=== PATIENT | male | born 1945 | race American Indian/Alaskan Native ===

== ENCOUNTER 2017-10-20 19:36 | Emergency (ER) | payer MEDICARE, OTHER ==
[2017-10-20] MEDS ORDERED: Albuterol/Ipratropium 3.0-0.5 MG/3 ML Neb Soln NEB ONE (20:01)
[2017-10-20] MEDS ORDERED: methylPREDNISolone Sodium Succinate 125 MG/2 ML SDV IM ONE (20:01)
--- NOTE | 2017-10-20 20:06 | EDM.PDOC ---
ED HPI GENERAL MEDICAL PROBLEM - General Chief Complaint: Respiratory Problem Stated Complaint: TROUBLE BREATHING Time Seen by Provider: 10/20/17 20:01 Source of Information: Reports: Patient History Limitations: Reports: No Limitations - History of Present Illness INITIAL COMMENTS - FREE TEXT/NARRATIVE: c/o asthma exac since this am and neb not working. usually needs shot. - Related Data Allergies Allergy/AdvReac Type Severity Reaction Status Date / Time Penicillins Allergy Hives Verified 10/20/17 19:48 Home Meds: Home Meds Albuterol [Proair HFA] 11/14/13 [History] Furosemide [Furosemide] 11/14/13 [History] Lisinopril [Lisinopril] 11/14/13 [History] Terbinafine [LamISIL] 11/14/13 [History] Terbinafine [LamISIL] 11/14/13 [History] glyBURIDE [Glyburide] 11/14/13 [History] Past Medical History Respiratory History: Reports: Asthma Endocrine/Metabolic History: Reports: Diabetes, Type II Social & Family History - Tobacco Use Smoking Status *Q: Never Smoker Years of Tobacco use: 25 Second Hand Smoke Exposure: No - Recreational Drug Use Recreational Drug Use: No ED ROS GENERAL - Review of Systems Review Of Systems: ROS reveals no pertinent complaints other than HPI. ED EXAM, GENERAL - Physical Exam Exam: See Below Exam Limited By: No Limitations General Appearance: Alert, WD/WN, Mild Distress, Other (wheeze) Ears: Hearing Grossly Normal Throat/Mouth: Normal Voice, No Airway Compromise Head: Atraumatic Neck: Non-Tender, Full Range of Motion Respiratory/Chest: No Respiratory Distress, No Accessory Muscle Use, Decreased Breath Sounds, Rhonchi, Wheezing. No: Retractions, Splinting Cardiovascular: Regular Rate, Rhythm GI/Abdominal: Soft, Non-Tender Neurological: Alert, Oriented, Normal Cognition, Normal Gait, No Motor/Sensory Deficits Psychiatric: Flat Affect Skin Exam: Warm, Dry, Normal Color Lymphatic: No Adenopathy Course - Vital Signs Last Recorded V/S: Last Vital Signs Temp 36.3 C 10/20/17 19:40 Pulse 66 10/20/17 19:40 Resp 18 10/20/17 19:40 BP 148/66 H 10/20/17 19:40 Pulse Ox 100 10/20/17 19:40 - Orders/Labs/Meds Orders: Active Orders 24 hr Category Date Time Status RT Aerosol Therapy [RC] ASDIRECTED Care 10/20/17 20:01 Active Meds: Medications Discontinued Medications Generic Name Dose Route Start Last Admin Trade Name Rasta PRN Reason Stop Dose Admin Albuterol/Ipratropium 3 ml 10/20/17 20:01 10/20/17 20:10 Duoneb 3.0-0.5 Mg/3 Ml NEB 10/20/17 20:02 3 ml ONETIME ONE Administration Methylprednisolone Sodium Succinate 125 mg 10/20/17 20:01 10/20/17 20:08 Solu-Medrol IM 10/20/17 20:02 125 mg ONETIME ONE Administration - Re-Assessments/Exams Free Text/Narrative Re-Assessment/Exam: 10/20/17 20:33 re-exam; s/p duo+IM solumed = much better 90% cleared Departure - Departure Time of Disposition: 20:33 Disposition: Home, Self-Care 01 Condition: Good Clinical Impression: Exacerbation of asthma Qualifiers: Asthma severity: moderate Asthma persistence: persistent Qualified Code(s): J45.41 - Moderate persistent asthma with (acute) exacerbation - Discharge Information Instructions: Asthma, Adult Forms: ED Department Discharge Additional Instructions: 1) rest 2) continue home meds 3) recheck if there is any change or concern rx given; medrol dospak duoneb only use every 12 hours when albuterol not working x 1 box - My Orders Last 24 Hours: My Active Orders 10/20/17 20:01 RT Aerosol Therapy [RC] ASDIRECTED - Assessment/Plan Last 24 Hours: My Active Orders 10/20/17 20:01 RT Aerosol Therapy [RC] ASDIRECTED
== END 2017-10-20 20:40 | disposition home or self-care (01) ==
LOC: DL.ED 19:36
DX: J45.41 Moderate persistent asthma with (acute) exacerbation (principal); E11.9 Type 2 diabetes mellitus without complications; Z79.84 Long term (current) use of oral hypoglycemic drugs; Z79.899 Other long term (current) drug therapy; Z88.0 Allergy status to penicillin
CPT/HCPCS: 96372; 99284; J2930

== ENCOUNTER 2019-11-24 08:17 | Day surgery (SDC) | payer MEDICARE, OTHER ==
[~2019-11-24 08:17] MED LIST: Tropicamide 1% Ophth Soln 15 ML Bottle EYELF ONE
[2019-11-24] MEDS ORDERED: Dexamethasone 4 MG/ML SDV IV ONE (08:18)
[2019-11-24] MEDS ORDERED: Midazolam 1 MG/ML 2 ML SDV IV ONE (08:18)
[2019-11-24] MEDS ORDERED: Sodium Chloride 0.9% 10 ML Syringe FLUSH PRN (08:30)
[2019-11-24] MEDS ORDERED: Phenylephrine 10% Ophth Soln 5 ML Bot EYELF PRN (08:30)
[2019-11-24] MEDS ORDERED: Povidone-Iodine 5% Sterile Ophth Soln 30 ML Bottle EYELF ONE ×2 (08:30→09:37)
[2019-11-24] MEDS ORDERED: Acetaminophen 325 MG Tab PO PRN (08:30)
[2019-11-24] MEDS ORDERED: Phenylephrine 10% Ophth Soln 5 ML Bot EYELF ONE ×2 (08:30→09:38)
[2019-11-24] MEDS ORDERED: Cataract Ophth Solution EYELF ONE (08:30)
[2019-11-24] MEDS ORDERED: Moxifloxacin 0.5% Ophth Soln 3 ML Bottle EYELF ONE (08:30)
[2019-11-24] MEDS ORDERED: Timolol Maleate 0.5% Ophth Soln 5 ML Bottle EYELF ONE (08:30)
[2019-11-24] MEDS ORDERED: Ondansetron 4 MG/2 ML SDV IVPUSH PRN (08:30)
[2019-11-24] MEDS ORDERED: Proparacaine 0.5% Ophth Soln 15 ML Bottle EYELF ONE (08:30)
[2019-11-24] MEDS ORDERED: Apraclonidine 0.5% Ophth Soln 5 ML Bot EYELF ONE (09:37)
[2019-11-24] MEDS ORDERED: Tetracaine HCl/PF 0.5% 4 ML Bottle EYELF ONE (09:37)
[2019-11-24] MEDS ORDERED: Diclofenac Sodium 0.1% Ophth Soln 5 ML Bottle EYELF ONE (09:37)
[2019-11-24] MEDS ORDERED: Lidocaine 1% 30 ML SDV ONE (09:37)
[2019-11-24] MEDS ORDERED: Vancomycin 500 MG SDV EYELF ONE (09:38)
[2019-11-24] MEDS ORDERED: Balanced Salt Solution Ophth Irrig 500 ML Bottle IOCULAR ONE (09:38)
[2019-11-24] MEDS ORDERED: Chondroitin Sulfate/Hyaluronate Sodium Ophth Inj 0.75 ML Syringe EYELF ONE (09:38)
[2019-11-24] MEDS ORDERED: Dexamethasone 4 MG/ML SDV IOCULAR ONE (09:43)
[2019-11-24] MEDS ORDERED: Acetylcholine 20 MG/2 ML Intraocular Inj Kit EYELF ONE (09:45)
[2019-11-24] MEDS ORDERED: Chondroitin Sulfate/Hyaluronate Sodium Ophth Inj 0.5 ML Syringe IOCULAR ONE (09:45)
--- NOTE | 2019-11-25 08:27 | OR ---
DATE: 11/24/2019 PREOPERATIVE DIAGNOSES: 1. Visually significant mixed cataract, left eye. 2. Primary open angle glaucoma, left eye. POSTOPERATIVE DIAGNOSES: 1. Visually significant mixed cataract, left eye. 2. Primary open angle glaucoma, left eye. PROCEDURES: 1. Extracapsular cataract extraction with intraocular lens implant. 2. Placement of iStent for glaucoma control. SURGEON: Nicholas Rose MD. ANESTHESIA: Local MAC. INDICATION: Mr. Parkinson was seen in the clinic with complaints of blurred vision. The examination revealed visually significant cataract and mild primary open angle glaucoma. I explained the options; offered cataract surgery; and I explained risks including, but not limited to, infection, retinal detachment, loss of vision, need for additional surgery, hemorrhage, and risks associated with anesthesia including loss of life. We discussed implant options. He has requested a monofocal implant targeting mild myopia. I recommended surgery with the iStent. OPERATIVE DESCRIPTION: The patient was prepped and draped in a sterile fashion and topical anesthesia was applied. Attention was placed on the operative eye. A sterile lid speculum was placed to allow operative exposure. Paracentesis was made temporal. Intracameral lidocaine was administered. Viscoelastic was injected. A full-thickness corneal incision was made using the trapezoidal blade. Bent needle cystotome was then used to make a small farideh in the anterior capsule and a 360-degree curvilinear capsulorrhexis was created. Nucleus was then hydrodissected and hydrodelinated using balanced saline solution. Nucleus was then decompressed centrally and rotated and noted to be free of adhesions. Nucleus was then removed using the phacoemulsification handpiece. Additional viscoelastic was then injected into the capsular bag and the intraocular lens was inserted into the capsular bag. The iStent portion of the procedure was then performed. Following removal of the nucleus and cortex, the irrigation and aspiration handpiece was inserted to remove viscoelastic from the posterior surface of the IOL. Additional viscoelastic was then inserted into the anterior chamber angle directly opposite the corneal incision. Miochol was injected into the nasal iris to promote pupillary contraction. The patient's head was then rotated 35 degrees away from the initial position. The operating microscope was also rotated 35 degrees to achieve the proper orientation. The gonioprism was then placed onto the eye. The iStent was then inserted into the anterior chamber with the right hand and the stent was introduced into the pigmented trabecular meshwork. The stent was advanced beneath the trabecular meshwork until approximately two-thirds of the body was covered and then the stent was released from the insertion device. The stent was then tapped into its final resting position using the insertion device. The device was then reinspected to ensure that it was securely in position. The viscoelastic was aspirated from the anterior chamber. Wound and paracentesis sites were hydrated using balanced saline solution. Vancomycin 0.1 mL was injected into the anterior chamber. Intraocular lens was inspected and noted to be clear and well centered. Postoperative drops were placed and a sterile eye patch and shield were placed over the operative eye. The patient was then transported to the postoperative recovery area having tolerated the procedure well. No complications occurred. [facility] /[id number]
== END 2019-11-24 11:00 | disposition home or self-care (01) ==
LOC: DL.SDS 08:17
PROVIDERS: ATTEND Ophthalmology
DX: E11.36 Type 2 diabetes mellitus with diabetic cataract (principal); H40.1120 Primary open-angle glaucoma, left eye, stage unspecified; H25.813 Combined forms of age-related cataract, bilateral; I10 Essential (primary) hypertension; E78.5 Hyperlipidemia, unspecified; E11.42 Type 2 diabetes mellitus with diabetic polyneuropathy; J44.9 Chronic obstructive pulmonary disease, unspecified; N40.1 Benign prostatic hyperplasia with lower urinary tract symptoms; N13.8 Other obstructive and reflux uropathy; G47.33 Obstructive sleep apnea (adult) (pediatric); E66.9 Obesity, unspecified; Z68.31 Body mass index [BMI] 31.0-31.9, adult; Z79.899 Other long term (current) drug therapy; Z79.84 Long term (current) use of oral hypoglycemic drugs; Z79.51 Long term (current) use of inhaled steroids; Z87.891 Personal history of nicotine dependence
CPT/HCPCS: 00142; 0191T; 66984; A9270; C1780; C1783; J1100; J2001; J2250; J3370

== ENCOUNTER 2020-02-23 08:03 | Day surgery (SDC) | payer MEDICARE, OTHER ==
[~2020-02-23 08:03] MED LIST changes: +Acetaminophen 325 MG Tab PO PRN; +Cataract Ophth Solution EYERT ONE; +Moxifloxacin 0.5% Ophth Soln 3 ML Bottle EYERT ONE; +Ondansetron 4 MG/2 ML SDV IVPUSH PRN; +Phenylephrine 10% Ophth Soln 5 ML Bot EYERT ONE; +Povidone-Iodine 5% Sterile Ophth Soln 30 ML Bottle EYERT ONE; +Proparacaine 0.5% Ophth Soln 15 ML Bottle EYERT ONE; +Sodium Chloride 0.9% 10 ML Syringe FLUSH PRN; +Timolol Maleate 0.5% Ophth Soln 5 ML Bottle EYERT ONE; -Tropicamide 1% Ophth Soln 15 ML Bottle EYELF ONE
[2020-02-23] MEDS ORDERED: Dexamethasone 4 MG/ML SDV IV ONE (08:04)
[2020-02-23] MEDS ORDERED: Sodium Chloride 0.9% 10 ML Syringe IV ONE (08:04)
[2020-02-23] MEDS ORDERED: Midazolam 1 MG/ML 2 ML SDV IV ONE (08:04)
[2020-02-23] MEDS ORDERED: Phenylephrine 10% Ophth Soln 5 ML Bot EYERT PRN (08:56)
[2020-02-23] MEDS ORDERED: Lidocaine 1% 30 ML SDV ONE (09:07)
[2020-02-23] MEDS ORDERED: Apraclonidine 0.5% Ophth Soln 5 ML Bot EYERT ONE (09:07)
[2020-02-23] MEDS ORDERED: Tetracaine HCl/PF 0.5% 4 ML Bottle EYERT ONE (09:07)
[2020-02-23] MEDS ORDERED: Povidone-Iodine 5% Sterile Ophth Soln 30 ML Bottle EYERT ONE (09:07)
[2020-02-23] MEDS ORDERED: Balanced Salt Solution Ophth Irrig 500 ML Bottle IOCULAR ONE (09:08)
[2020-02-23] MEDS ORDERED: Diclofenac Sodium 0.1% Ophth Soln 5 ML Bottle EYERT ONE (09:08)
[2020-02-23] MEDS ORDERED: Dexamethasone/Neomycin/Polymyxin B Ophth Oint 3.5 GM Tube EYERT ONE (09:08)
[2020-02-23] MEDS ORDERED: Vancomycin 500 MG SDV EYERT ONE ×2 (09:09)
[2020-02-23] MEDS ORDERED: Chondroitin Sulfate/Hyaluronate Sodium Ophth Inj 0.75 ML Syringe EYERT ONE (09:09)
[2020-02-23] MEDS ORDERED: Dexamethasone 4 MG/ML SDV IOCULAR ONE (09:09)
[2020-02-23] MEDS ORDERED: Acetylcholine 20 MG/2 ML Intraocular Inj Kit EYERT ONE (09:10)
[2020-02-23] MEDS ORDERED: Chondroitin Sulfate/Hyaluronate Sodium Ophth Inj 0.5 ML Syringe IOCULAR ONE (09:10)
--- NOTE | 2020-02-24 08:15 | OR ---
DATE: 02/23/2020 PREOPERATIVE DIAGNOSIS: Visually significant complex cataract, right eye. POSTOPERATIVE DIAGNOSIS: Visually significant complex cataract, right eye. PROCEDURES: 1. Complex cataract with small pupil/Malyugin ring. 2. IStent, right eye. INDICATION: Mr. Fely Parkinson was seen in the clinic. His examination revealed visually significant cataract. Examination also revealed mild primary open-angle glaucoma. I explained options, offered cataract surgery, and I explained risks including the potential for infection, retinal detachment, loss of vision, need for additional surgery, amongst others. We discussed implant options. He has requested a monofocal implant. He is comfortable wearing spectacle correction following surgery if necessary. I recommended surgery with the iStent. OPERATIVE DESCRIPTION: The patient was prepped and draped in a sterile fashion and topical anesthesia was applied. Attention was placed on the operative eye. A sterile lid speculum was placed to allow operative exposure. Paracentesis was made temporal. Intracameral lidocaine was administered. Viscoelastic was injected. A full-thickness corneal incision was made using the trapezoidal blade. Bent needle cystotome was then used to make a small farideh in the anterior capsule and a 360-degree curvilinear capsulorrhexis was created. Nucleus was then hydrodissected and hydrodelinated using balanced saline solution. Nucleus was then decompressed centrally and rotated and noted to be free of adhesions. Nucleus was then removed using the phacoemulsification handpiece. Additional viscoelastic was then injected into the capsular bag and the intraocular lens was inserted into the capsular bag. The iStent portion of the procedure was then performed. Following removal of the nucleus and cortex, the irrigation and aspiration handpiece was inserted to remove viscoelastic from the posterior surface of the IOL. Additional viscoelastic was then inserted into the anterior chamber angle directly opposite the corneal incision. Miochol was injected into the nasal iris to promote pupillary contraction. The patient's head was then rotated 35 degrees away from the initial position. The operating microscope was also rotated 35 degrees to achieve the proper orientation. The gonioprism was then placed onto the eye. The iStent was then inserted into the anterior chamber with the right hand and the stent was introduced into the pigmented trabecular meshwork. The stent was advanced beneath the trabecular meshwork until approximately two-thirds of the body was covered and then the stent was released from the insertion device. The stent was then tapped into its final resting position using the insertion device. The device was then reinspected to ensure that it was securely in position. The viscoelastic was aspirated from the anterior chamber. Wound and paracentesis sites were hydrated using balanced saline solution. Vancomycin 0.1 mL was injected into the anterior chamber. Intraocular lens was inspected and noted to be clear and well centered. Postoperative drops were placed and a sterile eye patch and shield were placed over the operative eye. The patient was then transported to the postoperative recovery area having tolerated the procedure well. No complications occurred. [facility] /[id number]
== END 2020-02-23 10:23 | disposition home or self-care (01) ==
LOC: DL.SDS 08:03
PROVIDERS: ATTEND Ophthalmology
DX: E11.39 Type 2 diabetes mellitus with other diabetic ophthalmic complication (principal); E11.36 Type 2 diabetes mellitus with diabetic cataract; H42 Glaucoma in diseases classified elsewhere; H40.1111 Primary open-angle glaucoma, right eye, mild stage; H25.811 Combined forms of age-related cataract, right eye; I10 Essential (primary) hypertension; N40.0 Benign prostatic hyperplasia without lower urinary tract symptoms; H66.92 Otitis media, unspecified, left ear; Z98.42 Cataract extraction status, left eye; Z88.0 Allergy status to penicillin; Z88.8 Allergy status to other drugs, medicaments and biological substances; Z87.891 Personal history of nicotine dependence
CPT/HCPCS: A9270-GY; C1780; C1783; J1100; J2001; J2250; J3370

== ENCOUNTER 2020-07-17 19:11 | Emergency (ER) | payer MEDICARE, OTHER ==
[2020-07-17] MEDS ORDERED: Aspirin 81 MG Tab.Chew PO ONE (19:51)
[2020-07-17 21:00] LABS: CHLORIDE,CL 97 mmol/L (98-107); SODIUM,NA 132 mmol/L (136-145)
[2020-07-17] MEDS ORDERED: 50% Dextrose in Water 50 ML Syringe IVPUSH ONE (21:02)
[2020-07-17] MEDS ORDERED: 50% Dextrose in Water 50 ML Syringe ONE (21:03)
--- NOTE | 2020-07-17 21:44 | CT ---
PROCEDURE INFORMATION: Exam: CT Chest Without Contrast Exam date and time: 07/17/2020 8:48 PM Age: 75 years old Clinical indication: Other: Covid TECHNIQUE: Imaging protocol: Computed tomography of the chest without contrast. Radiation optimization: All CT scans at this facility use at least one of these dose optimization techniques: automated exposure control; mA and/or kV adjustment per patient size (includes targeted exams where dose is matched to clinical indication); or iterative reconstruction. COMPARISON: CT CHEST PE STUDY 02/06/2010 3:52 PM FINDINGS: Lungs: There is scattered, bilateral ground-glass opacities throughout both lungs. The pattern is consistent with, but not specific for, it COVID-19 pneumonia. There is mild atelectasis in both lung bases.There is moderate, diffuse thickening of the bronchial ivy. Pleural space: The pleural surfaces are normal. Heart: There is mild atherosclerotic calcification of the coronary arteries. The heart is normal for nonenhanced technique. Mediastinal space: The esophagus is normal. The trachea is normal. Pulmonary arteries: The central pulmonary arteries demonstrate mild enlargement, consistent with mild pulmonary hypertension. The pulmonary artery appears normal for nonenhanced technique. Aorta: There is a bovine aortic arch, with a common origin of the left common carotid and brachiocephalic arteries. The aorta and great vessel origins are grossly normal for nonenhanced technique. Lymph nodes: There is no evidence of mediastinal or hilar lymphadenopathy / mass. Bones/joints: Sagittal/lateral images demonstrate a mild (less than 25%) chronic compression fracture of T4. The vertebra otherwise have normal morphology and alignment. The sternum, ribs, pectoral girdles, and soft tissues are normal. A small sclerotic focus within the T6 vertebra are unchanged. Soft tissues: Unremarkable. Other findings: The visualized abdominal structures are normal. IMPRESSION: 1. Moderate airway disease, asthma versus bronchiolitis. 2. Multifocal bilateral pneumonia consistent with COVID-19 pneumonia. 3. Mild bibasilar atelectasis. 4. Mild pulmonary arterial hypertension.
[2020-07-17] MEDS ORDERED: methylPREDNISolone Sodium Succinate 40 MG/1 ML SDV IVPUSH ONE (21:52)
--- NOTE | 2020-07-17 21:57 | EDM.PDOC ---
ED HPI GENERAL MEDICAL PROBLEM - General Chief Complaint: Respiratory Problem Stated Complaint: TYLENOL NOT FEELING WELLING Time Seen by Provider: 07/17/20 19:35 Source of Information: Reports: Patient, RN History Limitations: Reports: No Limitations - History of Present Illness INITIAL COMMENTS - FREE TEXT/NARRATIVE: ED with report of chills and body aches, Took Tylenol 100mg this johnna and felt different after, felt like talking confused but aware he was doing it. Feeling better now. 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 No vomiting or diarrhea. intermittent chest discomfort with cough. Uses inhalers . Lives with son. 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: Acetaminophen Anterior Chest Pain Score (Numeric/FACES): 6 - Related Data Allergies Allergy/AdvReac Type Severity Reaction Status Date / Time Penicillins Allergy Hives Verified 07/17/20 19:37 propoxyphene Allergy Cannot Verified 07/17/20 19:37 Remember Home Meds: Home Meds Albuterol [Proair HFA] 1 - 2 puff INH ASDIRECTED PRN 11/14/13 [History] Furosemide 40 mg PO DAILY PRN 11/14/13 [History] Lisinopril 5 mg PO DAILY 11/14/13 [History] glyBURIDE [Glyburide] 20 mg PO DAILY 11/14/13 [History] Budesonide [Pulmicort] 1 vial INH ASDIRECTED PRN 11/23/19 [History] Carboxymethylcellulose Sodium [Refresh Celluvisc] 1 - 2 drop EYEBOTH QID PRN 11/23/19 [History] Moxifloxacin HCl [Moxifloxacin] 1 drop EYELF ASDIRECTED 11/23/19 [History] Tamsulosin [Flomax] 0.8 mg PO DAILY 11/23/19 [History] Alogliptin Benzoate [Alogliptin] 25 mg PO DAILY 02/22/20 [History] Aspirin [Halfprin] 81 mg PO DAILY 02/22/20 [History] Formoterol Fumarate [Perforomist] 20 mcg IH BID 02/22/20 [History] Latanoprost/Pf [Latanoprost 0.005% Eye Drop] 1 drop EYEBOTH BEDTIME 02/22/20 [History] Loratadine 10 mg PO DAILY 02/22/20 [History] Montelukast Sodium 10 mg PO .EVENING 02/22/20 [History] Pioglitazone HCl 45 mg PO DAILY 02/22/20 [History] atorvaSTATin Calcium [Atorvastatin Calcium] 80 mg PO DAILY 02/22/20 [History] Past Medical History HEENT History: Reports: Allergic Rhinitis, Cataract, Glaucoma, Impaired Vision Cardiovascular History: Reports: High Cholesterol, Hypertension Respiratory History: Reports: Asthma, Sleep Apnea, Other (See Below) Other Respiratory History: uses a c-pap machine Gastrointestinal History: Reports: Chronic Constipation Genitourinary History: Reports: None Musculoskeletal History: Reports: Fracture Neurological History: Reports: Neuropathy, Diabetic Psychiatric History: Reports: None Endocrine/Metabolic History: Reports: Diabetes, Type II, Obesity/BMI 30+ Hematologic History: Reports: None Immunologic History: Reports: None Oncologic (Cancer) History: Reports: None Dermatologic History: Reports: None - Infectious Disease History Infectious Disease History: Reports: Mumps - Past Surgical History Head Surgeries/Procedures: Reports: None HEENT Surgical History: Reports: Oral Surgery Cardiovascular Surgical History: Reports: None Respiratory Surgical History: Reports: None GI Surgical History: Reports: Appendectomy, Colonoscopy Male Surgical History: Reports: None Endocrine Surgical History: Reports: None Neurological Surgical History: Reports: None Musculoskeletal Surgical History: Reports: None Oncologic Surgical History: Reports: None Dermatological Surgical History: Reports: None Social & Family History - Family History Family Medical History: Noncontributory - Tobacco Use Smoking Status *Q: Never Smoker Second Hand Smoke Exposure: No - Caffeine Use Caffeine Use: Reports: Coffee Other Caffeine Use: AVERAGE OF 4 CUPS OF COFFEE DAILY - Recreational Drug Use Recreational Drug Use: No ED ROS GENERAL - Review of Systems Review Of Systems: Comprehensive ROS is negative, except as noted in HPI. ED EXAM, GENERAL - Physical Exam Exam: See Below Exam Limited By: No Limitations General Appearance: Alert, No Apparent Distress Eye Exam: Bilateral Eye: EOMI, PERRL Ears: Normal External Exam. No: Normal TMs (partial occlusion cerumen) Nose: Normal Inspection Throat/Mouth: Normal Inspection Head: Atraumatic, Normocephalic Neck: Normal Inspection, Full Range of Motion Respiratory/Chest: No Respiratory Distress, Wheezing (anterior right) Cardiovascular: Normal Peripheral Pulses, Regular Rate, Rhythm GI/Abdominal: Normal Bowel Sounds, Soft Extremities: Normal Range of Motion. No: Pedal Edema Neurological: Alert, Oriented, Normal Cognition, Normal Gait, No Motor/Sensory D eficits. No: Disoriented, Memory Loss Recent Events Psychiatric: Flat Affect Skin Exam: Warm, Dry, Intact, Normal Color Course - Vital Signs Last Recorded V/S: Last Vital Signs Temp 97.7 F 07/17/20 20:30 Pulse 66 07/17/20 20:30 Resp 24 H 07/17/20 20:30 BP 117/51 L 07/17/20 20:30 Pulse Ox 97 07/17/20 20:30 - Orders/Labs/Meds Orders: Active Orders 24 hr Category Date Time Status Chest 1V Frontal [CR] Urgent Exams 07/17/20 19:49 Ordered Isolation [COMM] Routine Oth 07/17/20 19:50 Active Labs: Laboratory Tests 07/17/20 07/17/20 07/17/20 Range/Units 20:00 20:25 20:25 WBC 6.5 (5.0-10.0) 10^3/uL RBC 4.55 L (4.6-6.2) 10^6/uL Hgb 12.6 L D (14.0-18.0) g/dL Hct 38.6 L (40.0-54.0) % MCV 84.8 (80-100) fL MCH 27.7 (27.0-34.0) pg MCHC 32.6 L (33.0-35.0) g/dL Plt Count 92 L (150-450) 10^3/uL Neut % (Auto) 90.9 H (42.2-75.2) % Lymph % (Auto) 4.0 L (20.5-50.1) % [place] % (Auto) 4.9 (2-8) % Eos % (Auto) 0.0 L (1.0-3.0) % Baso % (Auto) 0.2 (0.0-1.0) % D-Dimer, Quantitative (0-400) ng/mL Sodium 132 L (136-145) mmol/L Potassium 4.0 (3.5-5.1) mmol/L Chloride 97 L (98-107) mmol/L Carbon Dioxide 26 (21-32) mmol/L Anion Gap 13.0 (7-13) mEq/L BUN 26 H (7-18) mg/dL Creatinine 0.94 (0.70-1.30) mg/dL Est Cr Clr Drug Dosing 65.98 mL/min Estimated GFR (MDRD) > 60 BUN/Creatinine Ratio 27.7 (No establ ref range) Glucose 47 L* (74-99) mg/dL POC Glucose (83-110) mg/dl Lactic Acid (0.4-2.0) mmol/L Calcium 8.6 (8.5-10.1) mg/dL Ferritin (26-388) mg/mL Total Bilirubin 0.4 (0.2-1.0) mg/dL AST 24 (15-37) U/L ALT 34 (16-63) U/L Alkaline Phosphatase 62 (46-116) U/L Troponin I < 0.017 (0.000-0.056) ng/mL B-Natriuretic Peptide 9 (0-100) pg/ml Total Protein 7.0 (6.4-8.2) g/dL Albumin 3.2 L (3.4-5.0) g/dL Globulin 3.8 Albumin/Globulin Ratio 0.84 Amylase (25-115) U/L Lipase (73-393) U/L Urine Color (YELLOW) Urine Appearance (CLEAR) Urine pH (5.0-9.0) Ur Specific [place] (1.005-1.030) Urine Protein (NEGATIVE) Urine Glucose (UA) (NEGATIVE) Urine Ketones (NEGATIVE) Urine Occult Blood (NEGATIVE) Urine Nitrite (NEGATIVE) Urine Bilirubin (NEGATIVE) Urine Urobilinogen (0.2-1.0) mg/dL Ur Leukocyte Esterase (NEGATIVE) Urine RBC /HPF Urine WBC (0-5/HPF) /HPF Ur Epithelial Cells (NOT SEEN) /HPF Urine Bacteria (0-FEW/HPF) /HPF SARS CoV-2 RNA Rapid FERNANDO Positive H (NEGATIVE) 07/17/20 07/17/20 07/17/20 Range/Units 20:25 20:25 20:25 WBC (5.0-10.0) 10^3/uL RBC (4.6-6.2) 10^6/uL Hgb (14.0-18.0) g/dL Hct (40.0-54.0) % MCV (80-100) fL MCH (27.0-34.0) pg MCHC (33.0-35.0) g/dL Plt Count (150-450) 10^3/uL Neut % (Auto) (42.2-75.2) % Lymph % (Auto) (20.5-50.1) % [place] % (Auto) (2-8) % Eos % (Auto) (1.0-3.0) % Baso % (Auto) (0.0-1.0) % D-Dimer, Quantitative 416 H (0-400) ng/mL Sodium (136-145) mmol/L Potassium (3.5-5.1) mmol/L Chloride (98-107) mmol/L Carbon Dioxide (21-32) mmol/L Anion Gap (7-13) mEq/L BUN (7-18) mg/dL Creatinine (0.70-1.30) mg/dL Est Cr Clr Drug Dosing mL/min Estimated GFR (MDRD) BUN/Creatinine Ratio (No establ ref range) Glucose (74-99) mg/dL POC Glucose (83-110) mg/dl Lactic Acid 0.9 (0.4-2.0) mmol/L Calcium (8.5-10.1) mg/dL Ferritin 291 (26-388) mg/mL Total Bilirubin (0.2-1.0) mg/dL AST (15-37) U/L ALT (16-63) U/L Alkaline Phosphatase (46-116) U/L Troponin I (0.000-0.056) ng/mL B-Natriuretic Peptide (0-100) pg/ml Total Protein (6.4-8.2) g/dL Albumin (3.4-5.0) g/dL Globulin Albumin/Globulin Ratio Amylase (25-115) U/L Lipase (73-393) U/L Urine Color (YELLOW) Urine Appearance (CLEAR) Urine pH (5.0-9.0) Ur Specific [place] (1.005-1.030) Urine Protein (NEGATIVE) Urine Glucose (UA) (NEGATIVE) Urine Ketones (NEGATIVE) Urine Occult Blood (NEGATIVE) Urine Nitrite (NEGATIVE) Urine Bilirubin (NEGATIVE) Urine Urobilinogen (0.2-1.0) mg/dL Ur Leukocyte Esterase (NEGATIVE) Urine RBC /HPF Urine WBC (0-5/HPF) /HPF Ur Epithelial Cells (NOT SEEN) /HPF Urine Bacteria (0-FEW/HPF) /HPF SARS CoV-2 RNA Rapid FERNANDO (NEGATIVE) 07/17/20 07/17/20 07/17/20 Range/Units 20:25 21:15 21:22 WBC (5.0-10.0) 10^3/uL RBC (4.6-6.2) 10^6/uL Hgb (14.0-18.0) g/dL Hct (40.0-54.0) % MCV (80-100) fL MCH (27.0-34.0) pg MCHC (33.0-35.0) g/dL Plt Count (150-450) 10^3/uL Neut % (Auto) (42.2-75.2) % Lymph % (Auto) (20.5-50.1) % [place] % (Auto) (2-8) % Eos % (Auto) (1.0-3.0) % Baso % (Auto) (0.0-1.0) % D-Dimer, Quantitative (0-400) ng/mL Sodium (136-145) mmol/L Potassium (3.5-5.1) mmol/L Chloride (98-107) mmol/L Carbon Dioxide (21-32) mmol/L Anion Gap (7-13) mEq/L BUN (7-18) mg/dL Creatinine (0.70-1.30) mg/dL Est Cr Clr Drug Dosing mL/min Estimated GFR (MDRD) BUN/Creatinine Ratio (No establ ref range) Glucose (74-99) mg/dL POC Glucose 180 H (83-110) mg/dl Lactic Acid (0.4-2.0) mmol/L Calcium (8.5-10.1) mg/dL Ferritin (26-388) mg/mL Total Bilirubin (0.2-1.0) mg/dL AST (15-37) U/L ALT (16-63) U/L Alkaline Phosphatase (46-116) U/L Troponin I (0.000-0.056) ng/mL B-Natriuretic Peptide (0-100) pg/ml Total Protein (6.4-8.2) g/dL Albumin (3.4-5.0) g/dL Globulin Albumin/Globulin Ratio Amylase 86 (25-115) U/L Lipase 203 (73-393) U/L Urine Color Yellow (YELLOW) Urine Appearance Slightly cloudy (CLEAR) Urine pH 5.5 (5.0-9.0) Ur Specific [place] 1.025 (1.005-1.030) Urine Protein 30 H (NEGATIVE) Urine Glucose (UA) Negative (NEGATIVE) Urine Ketones 15 H (NEGATIVE) Urine Occult Blood Trace-intact H (NEGATIVE) Urine Nitrite Negative (NEGATIVE) Urine Bilirubin Negative (NEGATIVE) Urine Urobilinogen 0.2 (0.2-1.0) mg/dL Ur Leukocyte Esterase Negative (NEGATIVE) Urine RBC 5-10 H /HPF Urine WBC 0-5 (0-5/HPF) /HPF Ur Epithelial Cells Rare (NOT SEEN) /HPF Urine Bacteria Rare (0-FEW/HPF) /HPF SARS CoV-2 RNA Rapid FERNANDO (NEGATIVE) Meds: Medications Discontinued Medications Generic Name Dose Route Start Last Admin Trade Name Freq PRN Reason Stop Dose Admin Aspirin 324 mg 07/17/20 19:51 07/17/20 19:59 Aspirin PO 07/17/20 19:52 324 mg ONETIME ONE Administration Dextrose/Water 50 ml 07/17/20 21:02 07/17/20 21:07 Dextrose 50% In Water IVPUSH 07/17/20 21:03 50 ml ONETIME ONE Administration Dextrose/Water Confirm 07/17/20 21:03 07/17/20 21:07 Dextrose 50% In Water Administered 07/17/20 21:04 Not Given Dose 50 ml .ROUTE .STK-MED ONE Methylprednisolone Sodium Succinate 40 mg 07/17/20 21:52 07/17/20 22:07 Solu-Medrol IVPUSH 07/17/20 21:53 40 mg ONETIME ONE Administration - Re-Assessments/Exams Free Text/Narrative Re-Assessment/Exam: 07/18/20 04:36 No respiratory distress. O2 sats during ED visit greater than 95 on room air. Home trial son lives with patient and will monitor and follow up if any change or worsening. Departure - Departure Time of Disposition: 21:54 Disposition: Home, Self-Care 01 Condition: Good Clinical Impression: COVID-19, Hypoglycemia, History of asthma - Discharge Information *PRESCRIPTION DRUG MONITORING PROGRAM REVIEWED*: No *COPY OF PRESCRIPTION DRUG MONITORING REPORT IN PATIENT DIPAK: No Instructions: Shortness of Breath, Adult, [id number], COVID-19: How to Protect Yourself and Others - CDC, Prevent the Spread of COVID-19 if You Are Sick - [facility] [place] Referrals: PCP,None [Primary Care Provider] - Forms: ED Department Discharge Additional Instructions: COntinue home medications do not miss doeses of medication for asthma diet as tolerated urgent follow up if worsening of symptoms uncontrolled fever, difficulty breathing monitor blood sugars isolation Sepsis Event Note (ED) - Evaluation Sepsis Screening Result: No Definite Risk - Focused Exam Vital Signs: Vital Signs Temp Pulse Resp BP Pulse Ox 07/17/20 20:30 97.7 F 66 24 H 117/51 L 97 07/17/20 19:20 97.5 F 76 14 127/55 L 97 - My Orders Last 24 Hours: My Active Orders 07/17/20 19:49 Chest 1V Frontal [CR] Urgent 07/17/20 19:50 Isolation [COMM] Routine - Assessment/Plan Last 24 Hours: My Active Orders 07/17/20 19:49 Chest 1V Frontal [CR] Urgent 07/17/20 19:50 Isolation [COMM] Routine
== END 2020-07-17 22:20 | disposition home or self-care (01) ==
LOC: DL.ED 19:11
DX: U07.1 COVID-19 (principal); E11.649 Type 2 diabetes mellitus with hypoglycemia without coma; J45.909 Unspecified asthma, uncomplicated; I10 Essential (primary) hypertension; E78.00 Pure hypercholesterolemia, unspecified; E11.40 Type 2 diabetes mellitus with diabetic neuropathy, unspecified; E66.9 Obesity, unspecified; Z68.29 Body mass index [BMI] 29.0-29.9, adult; Z88.0 Allergy status to penicillin; Z88.8 Allergy status to other drugs, medicaments and biological substances; Z79.899 Other long term (current) drug therapy; Z79.82 Long term (current) use of aspirin
CPT/HCPCS: 36415; 71250; 80053; 81001; 82150; 82728; 82962; 83605; 83690; 83880; 84484; 85025; 85379; 93005; 96374; 96375; 99285; A9270; J2920; U0002

== ENCOUNTER 2020-07-21 19:32 | Emergency (ER) | payer MEDICARE, OTHER ==
[2020-07-21] MEDS ORDERED: propofoL 100 ML IV ONE (19:33)
[2020-07-21] MEDS ORDERED: Rocuronium 100 MG/10 ML MDV IV ONE (19:33)
[2020-07-21] MEDS ORDERED: Etomidate 2 MG/ML 20 ML SDV IVPUSH ONE (19:33)
[2020-07-21] MEDS ORDERED: Succinylcholine 200 MG/10 ML MDV IV ONE (19:33)
[2020-07-21] MEDS ORDERED: methylPREDNISolone Sodium Succinate 125 MG/2 ML SDV IVPUSH ONE (19:59)
[2020-07-21] MEDS ORDERED: Albuterol/Ipratropium 3.0-0.5 MG/3 ML Neb Soln NEB ONE (20:00)
--- NOTE | 2020-07-21 20:02 | EDM.PDOC ---
ED HPI GENERAL MEDICAL PROBLEM - General Chief Complaint: Respiratory Problem Stated Complaint: 101*, COVID POS, SHORTNESS OF BREATH, FATIGUE, Time Seen by Provider: 07/21/20 20:00 Source of Information: Reports: Patient History Limitations: Reports: No Limitations - History of Present Illness INITIAL COMMENTS - FREE TEXT/NARRATIVE: covid pos Friday was Tx here with steroid got better went home then following day started SOB worse tonight. has asthma. - Related Data Allergies Allergy/AdvReac Type Severity Reaction Status Date / Time Penicillins Allergy Hives Verified 07/17/20 19:37 propoxyphene Allergy Cannot Verified 07/17/20 19:37 Remember Home Meds: Home Meds Albuterol [Proair HFA] 1 - 2 puff INH ASDIRECTED PRN 11/14/13 [History] Furosemide 40 mg PO DAILY PRN 11/14/13 [History] Lisinopril 5 mg PO DAILY 11/14/13 [History] glyBURIDE [Glyburide] 20 mg PO DAILY 11/14/13 [History] Budesonide [Pulmicort] 1 vial INH ASDIRECTED PRN 11/23/19 [History] Carboxymethylcellulose Sodium [Refresh Celluvisc] 1 - 2 drop EYEBOTH QID PRN 11/23/19 [History] Moxifloxacin HCl [Moxifloxacin] 1 drop EYELF ASDIRECTED 11/23/19 [History] Tamsulosin [Flomax] 0.8 mg PO DAILY 11/23/19 [History] Alogliptin Benzoate [Alogliptin] 25 mg PO DAILY 02/22/20 [History] Aspirin [Halfprin] 81 mg PO DAILY 02/22/20 [History] Formoterol Fumarate [Perforomist] 20 mcg IH BID 02/22/20 [History] Latanoprost/Pf [Latanoprost 0.005% Eye Drop] 1 drop EYEBOTH BEDTIME 02/22/20 [History] Loratadine 10 mg PO DAILY 02/22/20 [History] Montelukast Sodium 10 mg PO .EVENING 02/22/20 [History] Pioglitazone HCl 45 mg PO DAILY 02/22/20 [History] atorvaSTATin Calcium [Atorvastatin Calcium] 80 mg PO DAILY 02/22/20 [History] Past Medical History HEENT History: Reports: Allergic Rhinitis, Cataract, Glaucoma, Impaired Vision Cardiovascular History: Reports: High Cholesterol, Hypertension Respiratory History: Reports: Asthma, Sleep Apnea, Other (See Below) Other Respiratory History: uses a c-pap machine Gastrointestinal History: Reports: Chronic Constipation Genitourinary History: Reports: None Musculoskeletal History: Reports: Fracture Neurological History: Reports: Neuropathy, Diabetic Psychiatric History: Reports: None Endocrine/Metabolic History: Reports: Diabetes, Type II, Obesity/BMI 30+ Hematologic History: Reports: None Immunologic History: Reports: None Oncologic (Cancer) History: Reports: None Dermatologic History: Reports: None - Infectious Disease History Infectious Disease History: Reports: Novel Coronavirus - Past Surgical History Head Surgeries/Procedures: Reports: None HEENT Surgical History: Reports: Oral Surgery Cardiovascular Surgical History: Reports: None Respiratory Surgical History: Reports: None GI Surgical History: Reports: Appendectomy, Colonoscopy Male Surgical History: Reports: None Endocrine Surgical History: Reports: None Neurological Surgical History: Reports: None Musculoskeletal Surgical History: Reports: None Oncologic Surgical History: Reports: None Dermatological Surgical History: Reports: None Social & Family History - Family History Family Medical History: Noncontributory - Tobacco Use Tobacco Use Status *Q: Never Tobacco User Second Hand Smoke Exposure: No - Caffeine Use Caffeine Use: Reports: Coffee Other Caffeine Use: AVERAGE OF 4 CUPS OF COFFEE DAILY - Recreational Drug Use Recreational Drug Use: No ED ROS GENERAL - Review of Systems Review Of Systems: Comprehensive ROS is negative, except as noted in HPI. ED EXAM, GENERAL - Physical Exam Exam: See Below Exam Limited By: No Limitations General Appearance: Alert, WD/WN, Mild Distress, Moderate Distress, Other (SOB) Ears: Hearing Grossly Normal Throat/Mouth: Normal Voice, No Airway Compromise Head: Atraumatic Neck: Non-Tender, Full Range of Motion Respiratory/Chest: Decreased Breath Sounds, Rales, Wheezing, Accessory Muscle Use, Other (tachypnoeic) Cardiovascular: Regular Rate, Rhythm GI/Abdominal: Soft, Non-Tender (Male) Exam: Deferred Rectal (Males) Exam: Deferred Neurological: Alert, Oriented, Normal Cognition, No Motor/Sensory Deficits Psychiatric: Anxious, Other (tachypnoeic) Skin Exam: Other (moist but not diaphoretic) Lymphatic: No Adenopathy Course - Vital Signs Last Recorded V/S: Last Vital Signs Temp 37.1 C 07/21/20 19:37 Pulse 128 H 07/21/20 19:37 Resp 44 H 07/21/20 19:37 BP 107/73 07/21/20 19:37 Pulse Ox 67 L 07/21/20 19:37 - Orders/Labs/Meds Orders: Active Orders 24 hr Category Date Time Status RT Aerosol Therapy [RC] ASDIRECTED Care 07/21/20 20:00 Active Chest 1V Frontal [CR] Urgent Exams 07/21/20 20:46 Ordered CULTURE BLOOD [BC] Stat Lab 07/21/20 19:45 Received Labs: Laboratory Tests 07/21/20 07/21/20 07/21/20 Range/Units 19:45 19:45 19:45 WBC 11.0 H (5.0-10.0) 10^3/uL RBC 4.43 L (4.6-6.2) 10^6/uL Hgb 12.4 L (14.0-18.0) g/dL Hct 36.9 L (40.0-54.0) % MCV 83.3 (80-100) fL MCH 28.0 (27.0-34.0) pg MCHC 33.6 (33.0-35.0) g/dL Plt Count 259 D (150-450) 10^3/uL Neut % (Auto) 88.0 H (42.2-75.2) % Lymph % (Auto) 5.9 L (20.5-50.1) % [place] % (Auto) 5.8 (2-8) % Eos % (Auto) 0.0 L (1.0-3.0) % Baso % (Auto) 0.3 (0.0-1.0) % Add Manual Diff Yes Neutrophils % (Manual) 77 H (42-75) % Band Neutrophils % 15 % Lymphocytes % (Manual) 5 L (20-50) % Atypical Lymphs % 0 % Monocytes % (Manual) 2 (2-8) % Eosinophils % (Manual) 1 (1-3) % Sodium 130 L (136-145) mmol/L Potassium 4.9 (3.5-5.1) mmol/L Chloride 94 L (98-107) mmol/L Carbon Dioxide 17 L (21-32) mmol/L Anion Gap 23.9 H (7-13) mEq/L BUN 62 H D (7-18) mg/dL Creatinine 1.63 H (0.70-1.30) mg/dL Est Cr Clr Drug Dosing 37.30 mL/min Estimated GFR (MDRD) 41 BUN/Creatinine Ratio 38.0 (No establ ref range) Glucose 336 H (74-99) mg/dL Lactic Acid 4.7 H* (0.4-2.0) mmol/L Calcium 8.4 L (8.5-10.1) mg/dL Total Bilirubin 0.6 (0.2-1.0) mg/dL AST 35 (15-37) U/L ALT 29 (16-63) U/L Alkaline Phosphatase 69 (46-116) U/L Troponin I < 0.017 (0.000-0.056) ng/mL B-Natriuretic Peptide 74 (0-100) pg/ml Total Protein 6.9 (6.4-8.2) g/dL Albumin 2.5 L (3.4-5.0) g/dL Globulin 4.4 Albumin/Globulin Ratio 0.57 Meds: Medications Discontinued Medications Generic Name Dose Route Start Last Admin Trade Name Freq PRN Reason Stop Dose Admin Albuterol/Ipratropium 3 ml 07/21/20 20:00 07/21/20 20:04 Duoneb 3.0-0.5 Mg/3 Ml NEB 07/21/20 20:01 3 ml ONETIME ONE Administration Methylprednisolone Sodium Succinate 125 mg 07/21/20 19:59 07/21/20 20:05 Solu-Medrol IVPUSH 07/21/20 20:00 125 mg ONETIME ONE Administration - Re-Assessments/Exams Free Text/Narrative Re-Assessment/Exam: 07/21/20 21:14 re-exam; pt's showed no improvement s/p IV Rx. pt will be ET case discussed with Dr Bermudez ICU @ [facility] who kindly accepted pt. Departure - Departure Time of Disposition: 21:15 Disposition: DC/Tfer to Acute Hospital 02 Condition: Fair Clinical Impression: Pneumonia due to severe acute respiratory syndrome coronavirus 2 (SARS-CoV-2), Respiratory distress Exacerbation of asthma Qualifiers: Asthma severity: severe Asthma persistence: persistent Qualified Code(s): J45.51 - Severe persistent asthma with (acute) exacerbation - Discharge Information Forms: Interfacility Transfer [facility]OILAN Sepsis Event Note (ED) - Evaluation Sepsis Screening Result: No Definite Risk - Focused Exam Vital Signs: Vital Signs Temp Pulse Resp BP Pulse Ox 07/21/20 19:37 37.1 C 128 H 44 H 107/73 67 L - My Orders Last 24 Hours: My Active Orders 07/21/20 19:45 CULTURE BLOOD [BC] Stat 07/21/20 20:00 RT Aerosol Therapy [RC] ASDIRECTED 07/21/20 20:46 Chest 1V Frontal [CR] Urgent - Assessment/Plan Last 24 Hours: My Active Orders 07/21/20 19:45 CULTURE BLOOD [BC] Stat 07/21/20 20:00 RT Aerosol Therapy [RC] ASDIRECTED 07/21/20 20:46 Chest 1V Frontal [CR] Urgent
[2020-07-21 20:20] LABS: ANION GAP 23.9 mEq/L (7-13); CHLORIDE,CL 94 mmol/L (98-107); SODIUM,NA 130 mmol/L (136-145)
--- NOTE | 2020-07-21 21:31 | CR ---
PROCEDURE INFORMATION: Exam: XR Chest, 1 View Exam date and time: 07/21/2020 9:17 PM Age: 75 years old Clinical indication: Other: Tube placement; Additional info: Et placement, covid distress TECHNIQUE: Imaging protocol: XR of the chest Views: 1 view. COMPARISON: CT Chest wo Cont 07/17/2020 8:48 PM FINDINGS: Tubes, catheters and devices: Endotracheal tube is present with the tip above the level of the ariel. Nasogastric tube is in place. Lungs: Diffuse patchy airspace opacities noted throughout the lungs bilaterally. Pleural space: Unremarkable. No pleural effusion. No pneumothorax. Heart/Mediastinum: Unremarkable. No cardiomegaly. Bones/joints: Unremarkable. IMPRESSION: 1. Endotracheal tube is present with the tip above the level of the ariel. 2. Diffuse patchy airspace opacities noted throughout the lungs bilaterally. Findings consistent with edema, viral or atypical pneumonia. Other etiologies are not excluded.
--- NOTE | 2020-07-21 22:04 | PCM.SN.2 ---
- Free Text/Narrative Note: Intubation. Called to ER per MD to intubate covid positive Pt with respiratory distress. Pt with O2 sats 77% on O2 mask at 10 L with RR in 40s. Explained to Pt the planned intubation and sedation for transfer to another facility. Night Up flight present. At 2100 Pt given Rocuronium 5 mg IV, sedated with 18 mg of etomidate, cricoid pressue held, followed with 90 mg of Anectine. Night Up attempted intubation with glidescope # 3 blade and 7.5 ETT. Esophageal intubation, tube removed and Pt bagged with cricoid pressure. 10 mg of etomidate IV given. 2nd attempt by myself, glidescope used, cords visualized and 7.5 ETT passed through cords, cuff inflated, Pos fogging, Pos ETCO2 color change, BBS on auscultation. OG tube placed and confirmed with auscultation, Pt given 40 mg of rocuronium and 12c mg of etomidate. Versed and fentanyl drips started per Night Up flight. Report given. Propofol gtt started at 25 mcg/kg/min for sedation. Procedure time 2044 to 2199
== END 2020-07-21 21:36 ==
LOC: DL.ED 19:32
DX: J12.81 Pneumonia due to SARS-associated coronavirus (principal); J45.51 Severe persistent asthma with (acute) exacerbation; E78.00 Pure hypercholesterolemia, unspecified; I10 Essential (primary) hypertension; E11.40 Type 2 diabetes mellitus with diabetic neuropathy, unspecified; E66.9 Obesity, unspecified; Z68.28 Body mass index [BMI] 28.0-28.9, adult; Z88.0 Allergy status to penicillin; Z88.8 Allergy status to other drugs, medicaments and biological substances; Z79.899 Other long term (current) drug therapy; Z79.82 Long term (current) use of aspirin
CPT/HCPCS: 31500; 36415; 43752; 51702; 71045; 80053; 83605; 83880; 84484; 85025; 87040; 94640; 96374; 99284; 99285-25; J0330; J2704; J2930; J3490; J7620-GY